=== PATIENT | female | born 2000 | race Two or more races ===

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

== ENCOUNTER 2023-02-06 13:42 | Emergency (ER) | payer OTHER ==
[~2023-02-06] VITALS: Ht 157.5 cm; Wt 47.6 kg
[~2023-02-06 13:42] MED LIST: CEFADROXIL500 MG PO
== END 2023-02-06 16:53 | disposition home or self-care (01) ==
LOC: EMR PED 13:42
DX: J03.90 Acute tonsillitis, unspecified (principal); Z20.822 Contact with and (suspected) exposure to COVID-19

== ENCOUNTER → 2023-10-29 | Emergency (ER) | payer OTHER ==
[~2023-10-29] VITALS: Ht 157.5 cm; Wt 47.6 kg
[2023-10-29 13:20] LABS: HEMATOCRIT 40.3 % (36.0-45.00); HEMOGLOBIN 13.8 g/dL (12.0-15.00); MEAN CORPUSCULAR HEMOGLOBIN 29.4 pg (27.00-32.0); MEAN CORPUSCULAR HGB CONC 34.2 g/dl (32.0-36.0); PLATELET COUNT 144 K/uL (150-450); RED BLOOD COUNT 4.69 M/uL (4.00-6.00); RED CELL DISTRIBUTION WIDTH 12.7 % (11.5-14.5)
[2023-10-29 13:23] LABS: ERYTHROCYTE SEDIMENTATION RATE 11 mm/hr
[2023-10-29 13:37] LABS: CALCIUM 9.2 mg/dL (8.5-10.1); CREATININE SERUM 0.73 mg/dL (0.55-1.02); GFR 100.64; POTASSIUM 3.89 mEq/L (3.5-5.1)
[2023-10-29 13:37] LABS: URINE APPEARANCE Clear; URINE BILIRRUBIN Small (NEGATIVE); URINE BLOOD Large; URINE COLOR Dark Yellow; URINE GLUCOSE Negative (NEGATIVE); URINE LEUKOCYTE Trace; URINE NITRATE Negative; URINE PROTEIN 30 (NEGATIVE)
[2023-10-29 13:40] LABS: URINE BACTERIA 1010.4 uL (0.0-1933); URINE RBC 17.3 uL (0.0-20.8); URINE WBC 8.6 uL (0.0-23.2)
== END | disposition home or self-care (01) ==
LOC: ER 12:02
PROVIDERS: General Practice
DX: J10.1 Influenza due to other identified influenza virus with other respiratory manifestations (principal); R53.81 Other malaise

== ENCOUNTER → 2023-10-31 | Emergency (ER) | payer OTHER | END | disposition left against medical advice (07) | LOC: ER 19:47 | DX: Z53.21 Procedure and treatment not carried out due to patient leaving prior to being seen by health care provider (principal) ==